=== PATIENT | male | born 1970 | race Two or more races ===

== ENCOUNTER 2017-07-11 13:32 | Emergency (ER) | payer SELFPAY ==
[2017-07-11 13:42] VITALS: BP 126/88; PULSE 88; RESP 18
[2017-07-11] MEDS ORDERED: ONDANSETRON 4 MG/2 ML VIAL IVP ONE (13:42)
[2017-07-11] MEDS ORDERED: NS 1,000 ML IV ONE (13:43)
[2017-07-11] MEDS ORDERED: LET GEL TOPICAL 1 EA SYR TP ONE (15:10)
--- NOTE | 2017-07-11 15:36 | EDPHY ---
H & P Time Seen by Provider: 07/11/17 14:45 HPI/ROS: This patient was at home getting a piece of luggage a high shelf when the piece of luggage fell and struck him in the lip causing a lower lip laceration at noon today. He drove himself here by private vehicle for further evaluation. He reports moderate bleeding that slowed with direct pressure. He denies any other injuries. He does have a mild headache associated with this that is generalized with no feeling of being dazed from the incident and no LOC. ROS: Musculoskeletal: No neck pain neuro: No confusion. No numbness tingling or focal weakness. HEENT: No dental injury or other complaints. No nasal injury. GI: No nausea or vomiting 5 point ROS is otherwise negative Past Medical/Surgical History: Otherwise healthy Smoking Status: Never smoked Physical Exam: Physical exam: Vital signs are normal General: Patient is in no acute distress. HEENT: Is no external evidence of trauma on exam except for a 2.5 cm full- thickness laceration that crosses the vermilion border to the left lower lip. Subcutaneous tissues evident. There is mild bleeding. No foreign bodies and direct examination. Intraoral exam is negative for dental trauma or intraoral laceration. Ears: Clear bilaterally with no hemotympanum. Oropharynx: No dental trauma or malocclusion. No intraoral lacerations. Eyes: Pupils are equal and reactive to light. Extraocular motions are intact. Neck: Nontender with full range of motion intact Neuro: GCS of 15. Cranial nerves II through XII intact. Cerebellar exam is normal as judged by symmetric rapid hand movements bilaterally. No pronator drift. No sensory or motor deficits are appreciated. Constitutional: Initial Vital Signs Temperature (C) 36.7 C 07/11/17 13:39 Heart Rate 88 07/11/17 13:39 Respiratory Rate 18 07/11/17 13:39 Blood Pressure 126/88 H 07/11/17 13:39 O2 Sat (%) 93 07/11/17 13:39 O2 Delivery Mode Room Air Allergies/Adverse Reactions: No Known Allergies Allergy (Verified 07/11/17 13:38) Home Medications: Medication Instructions Recorded NK [No Known Home Meds] 07/11/17 MDM/Departure - MDM Procedures: The wound is 2.5 cm full-thickness to the vermilion border the left lower lip. The wound was copiously irrigated with saline. The wound was explored for foreign bodies and none were found. The wound was prepped and draped in the normal sterile fashion. The wound was anesthetized using let solution followed by 50 50 mix of 1% plain lidocaine and 0.5% Marcaine -1 mL, 30 gauge needle with good effect-. The edges of the vermilion border were approximated with good cosmesis with single 5 0 Prolene suture. The skin inferior to this was sutured with 2 more running sutures using 5 0 Prolene. The mucosal portion of the lip is sutured with 5 0 silk-9 running sutures with good tissue approximation, cosmesis and hemostasis. The patient tolerated the procedure well. There were no complications. Medications Given: Discontinued Medications Tetracaine/Epinephrine/Lidocaine (Let Gel Topical) 1 ea TP EDNOW ONE Stop: 07/11/17 15:11 Last Admin: 07/11/17 15:23 Dose: 1 ea - Depart Disposition: Home, Routine, Self-Care Clinical Impression: Lip laceration Qualifiers: Encounter type: initial encounter Qualified Code(s): S01.511A - Laceration without foreign body of lip, initial encounter Condition: Good Instructions: Facial Laceration (ED) Additional Instructions: Diagnosis: Lip laceration Plan: Keep the wound clean and dry for the next 2 days. Then clean it daily with warm soapy water gently. Return for suture removal in 5-7 days. Ibuprofen Tylenol for pain as needed Return sooner if you develop redness, discharge or other concerns for infection. Referrals: NONE *PRIMARY CARE P,. [Primary Care Provider] - As per Instructions
[2017-07-11 16:13] VITALS: TEMP 97.9; O2SAT 95
== END 2017-07-11 16:11 | disposition home or self-care (01) ==
LOC: CED 13:32
PROC: 0CQ1XZZ Repair Lower Lip, External Approach (ICD-10-PCS; principal; 2017-07-11)
DX: S01.511A Laceration without foreign body of lip, initial encounter (principal); W20.8XXA Other cause of strike by thrown, projected or falling object, initial encounter; Y92.009 Unspecified place in unspecified non-institutional (private) residence as the place of occurrence of the external cause